=== PATIENT | male | born 2000 | race Hispanic/Latino ===

== ENCOUNTER 2019-01-16 14:13 | Outpatient (CLI) | payer BC ==
--- NOTE | 2019-01-16 14:36 | ULT ---
Bilateral renal ultrasound CLINICAL INDICATION: History urinary tract infection. Slow urinary stream. COMPARISON: None. FINDINGS: Right kidney: There is no evidence of a renal mass, renal calculus, or hydronephrosis seen. The right kidney measures 11.3 cm x 5.1 cm. Left kidney: There is no evidence of a renal mass, renal calculus, or hydronephrosis. The left kidney measures 11.2 cm x 6 cm. Urinary bladder: Within normal limits. Urinary bladder volume is 391 mL. Post void urinary bladder vo lume is 17 mL. The ureteral jets are seen bilaterally on color flow evaluation. IMPRESSION: 1. Normal appearing bilateral kidneys without evidence of hydronephrosis. 2. Normal-appearing urinary bladder with ureteral jets seen bilaterally.
--- NOTE | 2019-01-16 14:53 | ULT ---
SCROTAL ULTRASOUND INDICATION: Suspected left-sided varicocele TECHNIQUE: Grayscale, color Doppler spectral Doppler images were obtained of the scrotum. COMPARISON: None. FINDINGS: Right Testicle: Size: 4.1 x 2.8 x 2.3. Flow: There is normal vascular flow to the right testicle Hydrocele: No right-sided hydrocele is evident Epididymis: There is a tiny right epididymal head cyst measuring 3 mm. Left Testicle: Size: 4.2 x 2.5 x 1.9 cm. Flow: There is normal vascular flow to left testicle. Hydrocele: No left sided hydrocele seen. Epididymis: The left epididymis appears within normal limits. Additional findings: There is a moderate sized left-sided varicocele. Impression: 1. Moderate sized left-sided varicocele. 2. No intratesticular mass or torsion demonstrated. 3. Small right epididymal head cyst
== END 2019-01-16 14:14 | disposition home or self-care (01) ==
LOC: SCSULT 14:13
PROVIDERS: ATTEND Urology
DX: I86.1 Scrotal varices (principal); R39.198 Other difficulties with micturition; R36.9 Urethral discharge, unspecified; N50.3 Cyst of epididymis; Z87.440 Personal history of urinary (tract) infections
CPT/HCPCS: 76770; 76870; 93976